=== PATIENT | female | born 1945 | race Caucasian/White ===

== ENCOUNTER 2017-03-20 14:21 | Emergency (ER) | payer MEDICARE ==
[~2017-03-20 14:21] MED LIST: ASPI-437 PO; BIOT50006 PO; CALC600T5; CYAN1000P IM; DENO60P SQ; E 101000 PO; FISH1000 PO; LEVO100T5 PO; VITA2000 PO; VITA500T35 PO
[2017-03-20 14:35] VITALS: BP 166/80; PULSE 70; RESP 20; TEMP 98.1; O2SAT 98
--- NOTE | 2017-03-20 15:15 | PD ---
HPI Chief Complaint: Injury Time Seen by Provider: 14:58 Travel History International Travel<30 days: No Contact w/Intl Traveler<30days: No Traveled to known affect area: No History of Present Illness HPI 71-year-old female here with left rib pain. 4 days ago patient reports that she tripped over her dog falling into a kitchen countertop injuring the right anterior/lateral aspect of her rib. She has had pain since the injury. She denies chest pain or shortness of breath. Symptoms are unrelieved by OTC Tylenol. She did not fall to the ground. She sustained no other injuries. She is not anticoagulated. [facility] Past Medical History Narrative Medical Hypothyroidism Medical other: Yes (osteopenia) Thyroid Disease: Yes Tetanus Vaccination: > 5 Years Influenza Vaccination: Yes ?: Not Past Surgical History Eye Surgery: Yes (CORRECT LENS) Oral Surgery: Yes Social History Alcohol Use: Yes (daily) Tobacco Use: No Substance Use: No Allergies-Medications (Allergen,Severity, Reaction): Coded Allergies: No Known Allergies (Unverified Allergy, Unknown, 03/20/17) Sulfa (Sulfonamide Antibiotics) (Verified Adverse Reaction, Intermediate, ALTERED MENTAL, 03/20/17) Reported Meds & Prescriptions Reported Meds & Active Scripts Active Ultram (Tramadol HCl) 50 Mg Tab 50 Mg PO Q6H PRN Reported Vitamin B12 (Cyanocobalamin) 500 Mcg Tab 500 Mcg PO BID Prolia Inj (Denosumab) 60 Mg/Ml Inj 60 Mg SQ Q180D Adult Low Dose Aspirin EC (Aspirin) 81 Mg Tablet.dr 1 Tab PO DAILY Fish Oil ([place]-3 Fatty Acids) 1,000 Mg Cap 1 Tab PO DAILY Biotin 5,000 Mcg Tab.rapdis 1 Tab PO BID E 1000 (Vitamin E) 1,000 Unit Cap 1 Tab PO DAILY Vitamin D3 (Cholecalciferol) 2,000 Unit Cap 2,000 Units PO BID Calcium (Calcium Carbonate) 600 Mg Tab Cyanocobalamin Inj (Cyanocobalamin) 1,000 Mcg/Ml Inj 1,000 Mcg IM Q30D Levothyroxine (Levothyroxine Sodium) 100 Mcg Tab 100 Mcg PO DAILY Review of Systems Except as stated in HPI: all other systems reviewed are Neg Cardiovascular: No: Chest Pain or Discomfort Respiratory: No: Shortness of Breath Physical Exam Narrative GENERAL: Alert well-appearing female. Stress SKIN: Warm and dry. HEAD: Normocephalic. Atraumatic EYES: No injection or drainage. NECK: Supple, trachea midline. No JVD or lymphadenopathy. Chest wall: Tenderness to the anterior lateral ribs. No crepitus. No ecchymosis CARDIOVASCULAR: Regular rate and rhythm RESPIRATORY: Breath sounds equal bilaterally. No accessory muscle use. GASTROINTESTINAL: Abdomen soft, non-tender, nondistended. MUSCULOSKELETAL: No cyanosis, or edema. BACK: Nontender without obvious deformity. No CVA tenderness. Data Data Last Documented VS Vital Signs Date Time Temp Pulse Resp B/P (MAP) Pulse Ox O2 Delivery O2 Flow Rate FiO2 03/20/17 14:35 98.1 70 20 166/80 (108) 98 Orders Orders Ribs, Uni (W/Exp Cxr-Min 3vw) (03/20/17 ) Resp Incentive Spirometry (03/20/17 ) Ed Discharge Order (03/20/17 16:01) MDM Medical Decision Making Medical Screen Exam Complete: Yes Emergency Medical Condition: Yes Medical Record Reviewed: Yes Differential Diagnosis Contusion, rib fracture, pneumothorax Narrative Course 71-year-old female with left rib pain after falling into fishing countertop 4 days ago. She is well-appearing. Rib x-ray: CONCLUSION: 1. Probable nondisplaced fractures of the left seventh and eighth ribs as above. 2. COPD changes. Diagnosis Primary Impression: Rib fracture Qualified Codes: S22.42XA - Multiple fractures of ribs, left side, initial encounter for closed fracture Referrals: Primary Care Physician Additional Instructions: Take [id number] Tylenol. Take the Ultram as needed for severe pain. Use the incentive spirometer as directed. Follow-up with your family doctor Scripts Tramadol (Ultram) 50 Mg Tab 50 MG PO Q6H Y for PAIN, #12 TAB 0 Refills Prov: Brenton Brown MD 03/20/17 Disposition: 01 DISCHARGE HOME Condition: Stable FengjoseNeena Mar 20, 2017 15:15
--- NOTE | 2017-03-20 15:27 | RADRPT ---
EXAM DATE/TIME: 03/20/2017 15:03 [facility] COMPARISON: No previous studies available for comparison. INDICATIONS : Left rib pain after falling into the kitchen counter Sunday. MEDICAL HISTORY : None. SURGICAL HISTORY : None. ENCOUNTER: Initial ACUITY: 2 days PAIN SCORE: 10/10 LOCATION: Left posterior chest. FINDINGS: The heart is normal in size. There is COPD changes within the pulmonary parenchyma. No pneumothorax i s identified. Detailed evaluation of the left ribs was performed. These demonstrate cortical irregularity of the la teral seventh and eighth left ribs. This is concerning for nondisplaced fracture. 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 CONCLUSION: 1. Probable nondisplaced fractures of the left seventh and eighth ribs as above. 2. COPD changes. Nathan Rosenberg MD on March 20, 2017 at 15:24 Board Certified Radiologist. This report was verified electronically.
[2017-03-20] MEDS ORDERED: TRAM50 PO (15:43)
== END 2017-03-20 16:07 | disposition home or self-care (01) ==
LOC: PHEFT 14:21
DX: S22.42XA Multiple fractures of ribs, left side, initial encounter for closed fracture (principal); W01.0XXA Fall on same level from slipping, tripping and stumbling without subsequent striking against object, initial encounter
CPT/HCPCS: 71101; 94150; 99283